=== PATIENT | female | born 1955 | race Caucasian/White ===

== ENCOUNTER 2020-07-23 15:04 | Inpatient (IN) | payer OTHER ==
[~2020-07-23] VITALS: Ht 152.4 cm; Wt 171.6 kg
[2020-07-23 16:17] LABS: Free Thyroxine 1.19 ng/dL (0.70-1.60); Thyroid Stimulating Hormone 1.7 uIU/mL (0.360-4.800)
[2020-07-24 08:30] LABS: BASOPHILS ABSOLUTE AUTO 0.01 K/mm3 (0.00-0.23); BASOPHILS PERCENT AUTO 0 % (0-2); EOSINOPHILS ABSOLUTE AUTO 0.07 K/mm3 (0.00-0.68); EOSINOPHILS PERCENT AUTO 1 % (0-6); Hematocrit 50.4 % (33.0-51.0); Hemoglobin 13.9 g/dL (11.5-16.0); IMMATURE GRAN ABSOLUTE AUTO 0.03 K/mm3 (0.00-0.10); IMMATURE GRAN PERCENT AUTO 1 % (0-1); LYMPHOCYTES ABSOLUTE AUTO 0.51 K/mm3 (0.84-5.20); LYMPHOCYTES PERCENT AUTO 10 % (21-46); MONOCYTES ABSOLUTE AUTO 0.44 K/mm3 (0.16-1.47); MONOCYTES PERCENT AUTO 8 % (4-13); Mean Corpuscular HGB 28.4 pg (26.0-34.0); Mean Corpuscular HGB Conc 27.6 g/dL (31.5-36.5); Mean Platelet Volume 9.8 fL (9.1-12.4); NEUTROPHILS ABSOLUTE AUTO 4.32 K/mm3 (1.96-9.15); NEUTROPHILS PERCENT AUTO 80 % (41-73); NRBC ABSOLUTE 0.04 K/mm3 (0.00-0.02); NRBC Auto 0.7 /100 WBC (0.0-0.2); Platelet Count 131 K/mm3 (150-400); RDW Coefficient Variation 14.3 % (11.7-14.2); RDW Standard Deviation 54.2 fL (35.1-46.3); White Blood Cell Count 5.38 K/mm3 (4.00-11.30)
[2020-07-24 08:31] LABS: Anion Gap -1 mmol/L (6-16); Blood Urea Nitrogen 26 mg/dL (8-24); Bun/Creatinine Ratio 30.8 (12.0-20.0); CHOL/HDL RATIO 3.4; CO2, Blood 40 mmol/L (21-32); Chloride, Blood 103 mmol/L (98-108); Cholesterol 85 mg/dL (50-200); Creatinine, Blood 0.85 mg/dL (0.40-1.00); Glomerular Filtration Rate >60 (60-); Glucose, Blood 125 mg/dL (70-99); HDL Cholesterol 25 mg/dL (>39); LDL/HDL RATIO 1.6; Low Density Lipoprotein Chol 41 mg/dL (0-110); Sodium, Blood 142 mmol/L (136-145); Triglycerides 95 mg/dL (30-160); Troponin I 0.109 ng/mL (0.000-0.040); Very Low Density Lipoprot Chol 19 mg/dL (6-32)
[2020-07-24 08:35] LABS: Mean Corpuscular Volume 103 fL (80-100)
[2020-07-25 05:59] LABS: Anion Gap 2 mmol/L (6-16); Blood Urea Nitrogen 22 mg/dL (8-24); CO2, Blood 40 mmol/L (21-32); Calcium, Blood 7.6 mg/dL (8.5-10.1); Chloride, Blood 99 mmol/L (98-108); Creatinine, Blood 0.73 mg/dL (0.40-1.00); Glomerular Filtration Rate >60 (60-); Glucose, Blood 103 mg/dL (70-99); Potassium, Blood 4.3 mmol/L (3.5-5.5); Sodium, Blood 141 mmol/L (136-145)
[2020-07-25 16:06] LABS: PCO2 Arterial 90 mmHg (35-45); PO2 Arterial 116 mmHg (80-100)
[2020-07-26 05:03] LABS: PCO2 Arterial 68.6 mmHg (35-45); PO2 Arterial 74.5 mmHg (80-100); pH Blood Arterial 7.43 (7.35-7.45)
[2020-07-26 05:19] LABS: Albumin, Blood 2.6 g/dL (3.4-5.0); Anion Gap 4 mmol/L (6-16); Blood Urea Nitrogen 17 mg/dL (8-24); CO2, Blood 42 mmol/L (21-32); Calcium, Blood 7.4 mg/dL (8.5-10.1); Chloride, Blood 94 mmol/L (98-108); Creatinine, Blood 0.63 mg/dL (0.40-1.00); Glomerular Filtration Rate >60 (60-); Glucose, Blood 87 mg/dL (70-99); Phosphorus, Blood 1.8 mg/dL (2.5-4.9); Potassium, Blood 3.6 mmol/L (3.5-5.5); Sodium, Blood 140 mmol/L (136-145)
[2020-07-27 04:22] LABS: Alanine Aminotransfer (ALT/SGP 38 U/L (12-78); Albumin, Blood 2.4 g/dL (3.4-5.0); Albumin/Globulin Ratio 0.7 (0.8-1.8); Alk Phos 91 U/L (50-136); Anion Gap 3 mmol/L (6-16); Aspartate Aminotrans (AST/SGOT 35 U/L (12-37); Bilirubin, Direct 0.3 mg/dL (0.0-0.3); Bilirubin, Indirect 0.7 mg/dL (0.1-0.7); Blood Urea Nitrogen 13 mg/dL (8-24); Bun/Creatinine Ratio 22.3 (12.0-20.0); CO2, Blood 43 mmol/L (21-32); Calcium, Blood 7.3 mg/dL (8.5-10.1); Chloride, Blood 92 mmol/L (98-108); Creatinine, Blood 0.58 mg/dL (0.40-1.00); Globulin, Blood 3.5 g/dL (2.2-4.0); Glomerular Filtration Rate >60 (60-); Glucose, Blood 96 mg/dL (70-99); Phosphorus, Blood 2.6 mg/dL (2.5-4.9); Potassium, Blood 3.3 mmol/L (3.5-5.5); Sodium, Blood 138 mmol/L (136-145); Total Protein, Blood 5.9 g/dL (6.4-8.2)
[2020-07-28 05:01] LABS: Albumin, Blood 2.7 g/dL (3.4-5.0); Anion Gap 3 mmol/L (6-16); Blood Urea Nitrogen 12 mg/dL (8-24); Bun/Creatinine Ratio 20.3 (12.0-20.0); CO2, Blood 43 mmol/L (21-32); Calcium, Blood 7.9 mg/dL (8.5-10.1); Chloride, Blood 94 mmol/L (98-108); Creatinine, Blood 0.59 mg/dL (0.40-1.00); Glomerular Filtration Rate >60 (60-); Glucose, Blood 97 mg/dL (70-99); Phosphorus, Blood 2.8 mg/dL (2.5-4.9); Potassium, Blood 3.8 mmol/L (3.5-5.5); Sodium, Blood 140 mmol/L (136-145)
[2020-07-28 05:38] LABS: PCO2 Arterial 72.5 mmHg (35-45); PO2 Arterial 62.8 mmHg (80-100)
[2020-07-29 05:39] LABS: PCO2 Arterial 82.5 mmHg (35-45); PO2 Arterial 75.5 mmHg (80-100); pH Blood Arterial 7.34 (7.35-7.45)
[2020-07-29 06:12] LABS: Albumin, Blood 2.5 g/dL (3.4-5.0); Anion Gap 2 mmol/L (6-16); Blood Urea Nitrogen 11 mg/dL (8-24); Bun/Creatinine Ratio 20.6 (12.0-20.0); CO2, Blood 41 mmol/L (21-32); Calcium, Blood 8.5 mg/dL (8.5-10.1); Chloride, Blood 97 mmol/L (98-108); Creatinine, Blood 0.53 mg/dL (0.40-1.00); Glomerular Filtration Rate >60 (60-); Glucose, Blood 97 mg/dL (70-99); Phosphorus, Blood 2.6 mg/dL (2.5-4.9); Potassium, Blood 3.7 mmol/L (3.5-5.5); Sodium, Blood 140 mmol/L (136-145)
[2020-07-30 05:39] LABS: PO2 Arterial 95.8 mmHg (80-100); pH Blood Arterial 7.36 (7.35-7.45)
[2020-07-30] MEDS ORDERED: ACET325 PO (11:31)
[2020-07-30] MEDS ORDERED: Aspir 8181 MG PO (11:31)
[2020-07-30] MEDS ORDERED: FURO40 PO (11:32)
[2020-07-30] MEDS ORDERED: ANTIFUNGAL POWD71 GM TOP (11:32)
[2020-07-30] MEDS ORDERED: POTCHL20ER PO (11:33)
[2020-07-30] MEDS ORDERED: NASAL SPRAY88 ML (11:35)
[2020-07-30] MEDS ORDERED: MIRALAX17 GM PO (11:36)
== END 2020-07-31 19:40 | disposition home or self-care (01) | DRG 280 ==
LOC: ER 15:04 → PCU 17:00 → MEDS 07-29 16:10 → ENPENDDIS 07-30 16:47 → MEDS 07-31 19:40
PROVIDERS: Internal Medicine; Nurse Practitioner Acute Care; Physician Assistant; ADMIT Internal Medicine
PROC: 5A09457 Assistance with Respiratory Ventilation, 24-96 Consecutive Hours, Continuous Positive Airway Pressure (ICD-10-PCS; principal; 2020-07-24)
PROC: 3E0234Z Introduction of Serum, Toxoid and Vaccine into Muscle, Percutaneous Approach (ICD-10-PCS; 2020-07-24)
DX: I11.0 Hypertensive heart disease with heart failure (principal); I50.31 Acute diastolic (congestive) heart failure; I21.A1 Myocardial infarction type 2; J96.21 Acute and chronic respiratory failure with hypoxia; J96.22 Acute and chronic respiratory failure with hypercapnia; Z23 Encounter for immunization; I27.20 Pulmonary hypertension, unspecified; E66.01 Morbid (severe) obesity due to excess calories; G47.33 Obstructive sleep apnea (adult) (pediatric); E83.39 Other disorders of phosphorus metabolism; E87.6 Hypokalemia; K59.00 Constipation, unspecified
CPT/HCPCS: 36415; 36600; 80048; 80053; 80061; 80069; 82248; 82803; 82947; 83735; 83880; 84100; 84439; 84443; 84484; 85025; 93005; 93010; 93306; 94660; 94761; 94762; 96372-59; 96374; 97110; 97116; 97162; 97166; 97530; 97535; 99285-25; A9270; J1644; J1940; J7060; Q2038

== ENCOUNTER → 2022-03-30 | Outpatient (CLI) | payer MEDICARE, OTHER ==
[~2022-03-30] MED LIST: ACET325 PO; ANTIFUNGAL POWD71 GM TOP; Aspir 8181 MG PO; FURO40 PO; MIRALAX17 GM PO; NASAL SPRAY88 ML; POTCHL20ER PO
[2022-04-02 14:06] LABS: Stool Occult Bld Immuno 1 Negative (NEGATIVE)
== END | disposition home or self-care (01) ==
LOC: LAB 14:29 → LAB SHORT 14:29
PROVIDERS: Physician Assistant
DX: Z12.11 Encounter for screening for malignant neoplasm of colon (principal)
CPT/HCPCS: G0328

== ENCOUNTER → 2022-05-11 | Outpatient (CLI) | payer MEDICARE, OTHER ==
[2022-05-13 15:10] LABS: HPV 16 Negative (Negative); HPV 18 Negative (Negative); HPV OTHER HR TYPES Negative (Negative)
== END | disposition home or self-care (01) ==
LOC: LAB 15:37 → LAB SHORT 15:37
PROVIDERS: Nurse Practitioner Family
DX: Z12.4 Encounter for screening for malignant neoplasm of cervix (principal); Z11.51 Encounter for screening for human papillomavirus (HPV)
CPT/HCPCS: 87624; G0123

== ENCOUNTER → 2023-04-03 | Outpatient (CLI) | payer MEDICARE, OTHER ==
[2023-04-06 10:43] LABS: Stool Occult Bld Immuno 1 Negative (NEGATIVE)
== END ==
LOC: LAB SHORT 12:00 → LAB 12:00
PROVIDERS: Physician Assistant
DX: Z12.11 Encounter for screening for malignant neoplasm of colon (principal)
CPT/HCPCS: G0328

== ENCOUNTER 2023-12-21 13:24 | Emergency (ER) | payer OTHER, MEDICARE ==
[~2023-12-21] VITALS: Ht 160 cm; Wt 154.2 kg
[2023-12-21 13:30] VITALS: BP 127/75
[2023-12-21] MEDS ORDERED: ALEN70 PO (13:41)
[2023-12-21] MEDS ORDERED: LOSA25 PO (13:41)
[2023-12-21] MEDS ORDERED: FOLI1 (13:41)
[2023-12-21] MEDS ORDERED: THERA-D2000 UNIT PO (13:41)
[2023-12-21] MEDS ORDERED: CALCIUM PO (13:41)
[2023-12-21] MEDS ORDERED: Triamcinolone A15 G3 (13:42)
[2023-12-21] MEDS ORDERED: TURMERIC538 MG (13:42)
[2023-12-21] MEDS ORDERED: METTREX2.5 (13:42)
[2023-12-21] MEDS ORDERED: MERIBIN5 MG (13:42)
[2023-12-21] MEDS ORDERED: MULVITA (13:42)
== END 2023-12-21 14:55 | disposition home or self-care (01) ==
LOC: ER 13:24
DX: S86.912A Strain of unspecified muscle(s) and tendon(s) at lower leg level, left leg, initial encounter (principal); E66.01 Morbid (severe) obesity due to excess calories; W01.0XXA Fall on same level from slipping, tripping and stumbling without subsequent striking against object, initial encounter; Z79.82 Long term (current) use of aspirin; Z79.899 Other long term (current) drug therapy; Z88.0 Allergy status to penicillin; Z88.8 Allergy status to other drugs, medicaments and biological substances
CPT/HCPCS: 73562-LT; 99283-25

== ENCOUNTER 2025-04-10 10:00 | Inpatient (IN) | payer MEDICARE, OTHER ==
[~2025-04-10] VITALS: Ht 157.5 cm; Wt 162.0 kg
[~2025-04-10 10:00] MED LIST changes: +ALEN70 PO; +ALKUMS300 MG PO; +FOLI1 PO; +LOSA25 PO; +MERIBIN5 MG PO; +METTREX2.5; +MULVITA PO; +THERA-D2000 UNIT PO; +TURMERIC538 MG PO; +Triamcinolone A15 G3
[2025-04-10 10:46] LABS: BASOPHILS ABSOLUTE AUTO 0.03 K/mm3 (0.00-0.23); BASOPHILS PERCENT AUTO 0 % (0-2); EOSINOPHILS ABSOLUTE AUTO 0.10 K/mm3 (0.00-0.68); EOSINOPHILS PERCENT AUTO 1 % (0-6); Hematocrit 31.7 % (33.0-51.0); Hemoglobin 8.2 g/dL (11.5-16.0); IMMATURE GRAN ABSOLUTE AUTO 0.08 K/mm3 (0.00-0.10); IMMATURE GRAN PERCENT AUTO 1 % (0-1); LYMPHOCYTES ABSOLUTE AUTO 0.74 K/mm3 (0.84-5.20); LYMPHOCYTES PERCENT AUTO 8 % (21-46); MONOCYTES ABSOLUTE AUTO 0.59 K/mm3 (0.16-1.47); MONOCYTES PERCENT AUTO 6 % (4-13); Mean Corpuscular HGB Conc 25.9 g/dL (31.5-36.5); Mean Corpuscular Volume 86 fL (80-100); NEUTROPHILS ABSOLUTE AUTO 7.94 K/mm3 (1.96-9.15); NEUTROPHILS PERCENT AUTO 84 % (41-73); NRBC ABSOLUTE 0.09 K/mm3 (0.00-0.02); NRBC Auto 0.9 /100 WBC (0.0-0.2); Platelet Count 223 K/mm3 (150-400); RDW Coefficient Variation 18.5 % (11.7-14.2); RDW Standard Deviation 55.6 fL (35.1-46.3)
[2025-04-10 11:09] LABS: CORONAVIRUS COVID-19 AG Negative (NEGATIVE)
[2025-04-10 11:26] LABS: Alanine Aminotransfer (ALT/SGP 32.0 U/L (12-78); Albumin, Blood 2.9 g/dL (3.4-5.0); Albumin/Globulin Ratio 0.7 (0.8-1.8); Anion Gap 4.0 mmol/L (3-11); Aspartate Aminotrans (AST/SGOT 24.0 U/L (12-37); Bilirubin, Total 0.4 mg/dL (0.1-1.0); Blood Urea Nitrogen 17.0 mg/dL (8-24); CO2, Blood 40.0 mmol/L (21-32); Calcium, Blood 9.3 mg/dL (8.5-10.1); Chloride, Blood 95.0 mmol/L (98-108); Creatinine, Blood 0.66 mg/dL (0.40-1.00); Globulin, Blood 3.9 g/dL (2.2-4.0); Glucose, Blood 175.0 mg/dL (70-99); Potassium, Blood 5.1 mmol/L (3.5-5.5); Sodium, Blood 134.0 mmol/L (136-145); Total Protein, Blood 6.8 g/dL (6.4-8.2)
[2025-04-10 12:13] LABS: Source, Urine Straight Cath
[2025-04-10 12:19] LABS: Bilirubin, Urine Neg (Neg); Color, Urine Yellow (P-Yellow); Glucose Qualitative, Urine Neg (Neg); Ketones, Urine Neg (Neg); Leukocyte Esterase, Urine Neg (Neg); Protein, Urine 2+ (Neg); Specific Gravity, Urine 1.025 (1.003-1.022); Urobilinogen, Urine NORM (Normal)
[2025-04-10 12:28] LABS: Red Blood Cells, Urine 0-2 /hpf (0-2)
[2025-04-10] MEDS ORDERED: CefTRIAXone Sodium 1,000 MG in NS 50 ML IV ONE (13:35)
[2025-04-10] MEDS ORDERED: FLU VACC TS2025(65UP)/MF59C/PF 45 MCG/0.5 ML SYRINGE IM SCH (14:00)
[2025-04-10] MEDS ORDERED: Furosemide 10 MG / ML 2ML Vial IV SCH (14:09)
[2025-04-10] MEDS ORDERED: Ipratropium/Albuterol SulF 2.5-0.5MG/3 ML Amp INH PRN (14:25)
[2025-04-10 16:56] LABS: pH Blood Venous 7.25 (7.34-7.37)
[2025-04-10 17:46] VITALS: BP 153/86
[2025-04-10 18:05] LABS: Influenza A/2009-H1 Not Detected (NOT DETECT); SARS-Cov-2 (COVID-19), BioFire Not Detected (NOT DETECT)
--- NOTE | 2025-04-10 18:47 | NUR ---
ADMIT NOTE RECEIVED REPORT FROM KAREEN RICO IN ED. RECEIVED CALL FROM POP RT THAT PATIENT WAS NO LONGER RESPONDING. PATIENT TO ROOM VIA GURNEY, TRANSFERED TO BED. PT OBTUNDED, RESPONDING TO PAINFUL STIMULI BUT QUICKLY FALLING BACK TO SLEEP. PT ON BIPAP AVAPS 18-26 50%, RESP RATE 25-30'S, SHALLOWING BREATHING NOTED, RT AT BEDSIDE, VBG RESULTED TO DR MCCAULEY PER RT. TELE SINUS 70'S, BP STABLE. PT SATURATED WITH URINE, BEDBATH PROVIDED, PUREWICK PLACED. NPA PLACED BY RT DUE TO TIDAL VOLUMES. PT MORE ALERT AT THIS TIME, PULLING AT LINES, PULLED IV, PUREWICK, SEVERAL TIMES AND PULLING OFF BIPAP; PT ATTEMPTING TO REMOVED NPA, REMOVED FOR PATIENT COMFORT. TO NOTIFIED THAT UNABLE TO DO STRICT I/O DR MCCAULEY, NEW ORDERS FOR BARRETO CATHETER. PATIENT SETTLEDED, ALERT, ORIENTED, ANSWERING QUESTIONS APPROPRAITELY. BED IN LOW, CALL LIGHT WITHIN REACH. REPORT GIVEN TO ONCOMING RN.
[2025-04-10 19:01] LABS: pH Blood Venous 7.28 (7.34-7.37)
[2025-04-10 19:26] VITALS: BP 136/69
[2025-04-10 23:30] VITALS: BP 122/64
[2025-04-11] VITALS (7 sets, daily range): BP systolic 118–160; BP diastolic 65–101
[2025-04-11 04:47] LABS: Anion Gap 3.0 mmol/L (3-11); Blood Urea Nitrogen 18.0 mg/dL (8-24); CO2, Blood 43.0 mmol/L (21-32); Calcium, Blood 8.4 mg/dL (8.5-10.1); Chloride, Blood 95.0 mmol/L (98-108); Creatinine, Blood 0.55 mg/dL (0.40-1.00); Glucose, Blood 131.0 mg/dL (70-99); Potassium, Blood 4.9 mmol/L (3.5-5.5); Sodium, Blood 136.0 mmol/L (136-145)
--- NOTE | 2025-04-11 06:36 | NUR ---
NO ACUTE EVENTS OVERNIGHT PT IS ALERT AND ORIENTED X 3. PT IS UNAWARE OF THE DAY/DATE. PT IS PLEASANT AND TALKATIVE. PT IS ABLE TO FOLLOWS COMMANDS. PT HAS WEAKNESS IN ALL EXTREMITIES. PT TOLERATES BIPAP WELL. BARRETO PATENT AND DRAINING. BARIACTRIC BED LOCKED IN LOWEST POSITION. LIFT USED TO REPOSITION PT. PT HAS NO FAMILY PER FRIEND/NEIGHBOR AT BEDSIDE. PT'S EMERGENCY CONTACTS ARE FRIENDS. NAMES AND NUMBERS PLACED IN CHART AND WRITTEN ON BOARD. CALL LIGHT WITHIN REACH.
[2025-04-11 08:59] LABS: pH Blood Venous 7.38 (7.34-7.37)
[2025-04-11] MEDS ORDERED: Enoxaparin 40 MG/0.4 ML SYR SC SCH (09:00)
[2025-04-11] MEDS ORDERED: CefTRIAXone Sodium 1,000 MG in NS 100 ML IV SCH (15:00)
[2025-04-11] MEDS ORDERED: OTEZLA PO (16:13)
[2025-04-11] MEDS ORDERED: NYSTOP15 GM TOP (16:15)
[2025-04-11] MEDS ORDERED: ALEN70 PO (16:15)
[2025-04-11] MEDS ORDERED: FURO40 PO (16:17)
--- NOTE | 2025-04-11 19:20 | NUR ---
SHIFT SUMMARY: A/O X4, PLEASANT AND COOPERATIVE WITH CARE, ABLE TO COMMUNICATE NEEDS, ODD PERSONALITY, GETS SIDE TRACKED EASILY. 4.5-5L O2 VIA NC WHILE AWAKE, BIPAP WITH SLEEP, NEIGHBOR BROUGHT IN HOME BIPAP AND PORTABLE O2, NOTIFY RT TO SET UP WHEN PT IS READY FOR BED, DENIES SOB, CHEST PAIN OR PRESSURE. NSR, HR 70'S. MD GUY TO BEDSIDE TODAY, CT W/CONTRAST OF CHEST COMPLETED, SPUTUM SAMPLE COLLECTED, LIVER ULTRASOUND ORDERED.
[2025-04-12 04:05] VITALS: BP 131/65
[2025-04-12 04:27] LABS: BASOPHILS ABSOLUTE AUTO 0.00 K/mm3 (0.00-0.23); BASOPHILS PERCENT AUTO 0 % (0-2); EOSINOPHILS ABSOLUTE AUTO 0.01 K/mm3 (0.00-0.68); EOSINOPHILS PERCENT AUTO 0 % (0-6); Hematocrit 28.0 % (33.0-51.0); Hemoglobin 7.3 g/dL (11.5-16.0); IMMATURE GRAN ABSOLUTE AUTO 0.03 K/mm3 (0.00-0.10); IMMATURE GRAN PERCENT AUTO 1 % (0-1); LYMPHOCYTES ABSOLUTE AUTO 0.35 K/mm3 (0.84-5.20); LYMPHOCYTES PERCENT AUTO 6 % (21-46); MONOCYTES ABSOLUTE AUTO 0.23 K/mm3 (0.16-1.47); MONOCYTES PERCENT AUTO 4 % (4-13); Mean Corpuscular HGB Conc 26.1 g/dL (31.5-36.5); Mean Corpuscular Volume 85 fL (80-100); NEUTROPHILS ABSOLUTE AUTO 5.02 K/mm3 (1.96-9.15); NEUTROPHILS PERCENT AUTO 89 % (41-73); NRBC ABSOLUTE 0.00 K/mm3 (0.00-0.02); NRBC Auto 0.0 /100 WBC (0.0-0.2); Platelet Count 174 K/mm3 (150-400); RDW Coefficient Variation 19.1 % (11.7-14.2); RDW Standard Deviation 54.5 fL (35.1-46.3)
[2025-04-12 04:57] LABS: Albumin, Blood 2.6 g/dL (3.4-5.0); Blood Urea Nitrogen 19 mg/dL (8-24); Calcium, Blood 8.3 mg/dL (8.5-10.1); Chloride, Blood 94 mmol/L (98-108); Creatinine, Blood 0.59 mg/dL (0.40-1.00); Glucose, Blood 131 mg/dL (70-99); Phosphorus, Blood 2.9 mg/dL (2.5-4.9); Potassium, Blood 4.2 mmol/L (3.5-5.5); Sodium, Blood 137 mmol/L (136-145)
[2025-04-12 04:59] LABS: Anion Gap Unable to Calculate mmol/L (3-11); CO2, Blood >45 mmol/L (21-32)
--- NOTE | 2025-04-12 06:33 | NUR ---
SHIFT SUMMARY PATIENT A/OX4. ON O2 @ 4-5L/MIN NC BEGINNING OF SHIFT. TRIED HER HOME VENT AND IT WAS NOT ADEQUATE, SHE WOULD DESATURATE RAPIDLY TO 70'S. RT SWITCHED HER OVER TO HOSPITAL PAP. PATIENT PERRI WELL WITH FREQUENT BREAKS TO DRINK WATER. SR ON MONITOR. NO COMPLAINTS OF PAINT. READJUSTED PRN FOR COMFORT AND PRESSURE RELIEF. DISCUSSED AM LAB VALUES H&H TREND AND CRITICAL CO2 >45 WITH RESIDENT. GOOD URINE OUTPUT. NO SIGNIFICANT EVENTS OVERNIGHT. PATIENT ABLE TO MAKE NEEDS KNOWN WITH CALL LIGHT IN REACH. PLAN OF CARE ONGOING.
[2025-04-12] MEDS ORDERED: Iron Dextran 50 MG / ML 2ML Vial IV ONE (08:00)
[2025-04-12 08:18] VITALS: BP 138/68
[2025-04-12 09:01] LABS: pH Blood Venous 7.33 (7.34-7.37)
[2025-04-12] MEDS ORDERED: Iron Dextran 975 MG in NS 250 ML IV ONE (10:00)
[2025-04-12] MEDS ORDERED: Polyethylene Glycol 3350 17 gm PO PRN (11:10)
[2025-04-12 11:57] VITALS: BP 122/59
[2025-04-12 15:26] VITALS: BP 134/66
--- NOTE | 2025-04-12 15:39 | NUR ---
SHIFT SUMMARY: A/O X4, PLEASANT AND COOPERATIVE WITH CARE, ABLE TO COMMUNICATE NEEDS, USES CALL LIGHT APPROPRIATLEY. HOME AVAPS AT BEDSIDE WITH REPORT OF HOME SETTINGS NOT BEING ADEQUATE FOR PT AT THIS TIME PER RT AND MD GUY, CONTINUE USING HOSPITAL AVAPS, HOME PORTABLE O2 IN CLOSET. SPO2 >92% ON 3-4L OF 02 VIA NC, DESATS WITH MOUTH BREATHING, RECOVERS WITH REMINDERS TO BREATHE THROUGH THE NOSE, DENIES SOB. PT UP TO CHAIR MOST OF THE DAY, 1 EPISODE OF DESAT TO 70'S WHEN PT STOOD TO ADJUST HERSELF IN CHAIR, QUICKLY RECOVERED. ESTEVAN DUMONT'D, PUREWICK IN PLACE DRAING TO LIGHT SUCTION. VENOUS DUPLEX AND LIVER ULTRASOUND COMPLETED.
--- NOTE | 2025-04-12 19:41 | NUR ---
[facility] ASSUMED PT'S CARE AT 1900,PT LYING IN BED USING TABLET.BEDSIDE REPORT COMPLETED.PLAN OF CARE REVIEWED.WEARING HOSPITAL BIPAP WITH ADJUSTED AVAP SETTINGS DIFFERENT FROM HOME TRILOGY SETTINGS.PT DENIES PAIN,DENIES SOB,DENIES NUMBNESS/TINGLING,DENIES NAUSEA,DENIES NEEDS.CALL LIGHT AND PT'S ITEMS WITHIN REACH.MONITORING ONGOING PER CAREPLAN.
[2025-04-12 20:05] VITALS: BP 132/62
[2025-04-12] MEDS ORDERED: Lactobacil 2-S.Thermo-Bifido 1 1 Cap PO SCH (21:00)
[2025-04-12 23:34] VITALS: BP 111/60
[2025-04-13 03:44] VITALS: BP 122/67
[2025-04-13 04:11] LABS: Hematocrit 27.9 % (33.0-51.0); Hemoglobin 7.3 g/dL (11.5-16.0); Mean Corpuscular HGB Conc 26.2 g/dL (31.5-36.5); Mean Corpuscular Volume 84 fL (80-100); NRBC ABSOLUTE 0.03 K/mm3 (0.00-0.02); NRBC Auto 0.5 /100 WBC (0.0-0.2); Platelet Count 183 K/mm3 (150-400); RDW Coefficient Variation 19.5 % (11.7-14.2); RDW Standard Deviation 54.3 fL (35.1-46.3)
[2025-04-13 04:32] LABS: Albumin, Blood 2.6 g/dL (3.4-5.0); Anion Gap 4 mmol/L (3-11); Blood Urea Nitrogen 21 mg/dL (8-24); CO2, Blood 44 mmol/L (21-32); Calcium, Blood 8.5 mg/dL (8.5-10.1); Chloride, Blood 94 mmol/L (98-108); Creatinine, Blood 0.64 mg/dL (0.40-1.00); Glucose, Blood 97 mg/dL (70-99); Phosphorus, Blood 3.0 mg/dL (2.5-4.9); Potassium, Blood 3.6 mmol/L (3.5-5.5); Sodium, Blood 138 mmol/L (136-145)
--- NOTE | 2025-04-13 06:22 | NUR ---
PT MONITORED DURING THE SHIFT.PT USED THE BIPAP ON/OFF.PT SAID THAT SHE NEEDED A BREAK DUE TO MOUTH DRYNESS.PT STATES THAT SHE IS USED TO USING THE TRILOGY SINCE IT HAS MOISTURE.USED 4L NC WHILE TOOK A BREAK FROM THE BIPAP.PT DENIES PAIN,DENIES SOB,DENIES NEEDS AT THIS TIME.CALL LIGHT AND PT'S ITEMS WITHIN REACH.MONITORING ONGOING PER CAREPLAN.
[2025-04-13 08:12] VITALS: BP 136/62
--- NOTE | 2025-04-13 13:33 | NUR ---
Telephone report given to KAREEN Sevilla at this time. Pt to move up to 325 shortly. netbackup administrator working transfer her up.
[2025-04-13 13:59] VITALS: BP 128/63
[2025-04-13] MEDS ORDERED: NS 250 ML IV PRN (15:35)
--- NOTE | 2025-04-13 19:32 | NUR ---
PT A/OX4. PLEASANT AND COOPERATIVE WITH CARE. USES CALL LIGHT APPROPRIATELY. PT IS ON IV LASIX WITH PUREWICK IN PLACE. REPORTS NO BM SINCE ADMISSION. PT ON 4L O2 NC, SATTING AT 93% ON CONT PULSE OX.1-2PA TO THE COMMODE. DENIES PAIN. NO ACUTE NEEDS AT THIS TIME.
[2025-04-13 19:58] VITALS: BP 123/51
[2025-04-13] MEDS ORDERED: Docusate Sodium/Senna 1 Tab PO SCH (21:00)
[2025-04-14 02:56] VITALS: BP 106/64
[2025-04-14 04:49] LABS: Albumin, Blood 2.7 g/dL (3.4-5.0); Anion Gap 7 mmol/L (3-11); Blood Urea Nitrogen 19 mg/dL (8-24); CO2, Blood 42 mmol/L (21-32); Calcium, Blood 8.9 mg/dL (8.5-10.1); Chloride, Blood 94 mmol/L (98-108); Creatinine, Blood 0.60 mg/dL (0.40-1.00); Glucose, Blood 90 mg/dL (70-99); Phosphorus, Blood 3.8 mg/dL (2.5-4.9); Potassium, Blood 3.9 mmol/L (3.5-5.5); Sodium, Blood 139 mmol/L (136-145)
--- NOTE | 2025-04-14 04:56 | NUR ---
SHIFT SUMMARY PATIENT ADMITTED FOR ACUTE AND CHRONIC RESPIRATORY FAILURE WITH HYPOXIA. PATIENT ON BIPAP AT NIGHT FOR OBSTRUCTIVE SLEEP APNEA. PATIENT USES CALL LIGHT FREQUENTLY FOR POSITION CHANGES, INCLUDING RAISING THE HEAD AND FOOT OF THE BED. PATIENT RESTING COMFORTABLE AT THIS TIME. BED RAILS UP X3. BED IN LOWEST POSITION FOR SAFETY. CALL LIGHT WITHIN REACH.
[2025-04-14 07:43] VITALS: BP 128/64
[2025-04-14] MEDS ORDERED: TRIA15CR3 TOP (09:04)
[2025-04-14 15:41] VITALS: BP 142/72
[2025-04-14] MEDS ORDERED: ZINC OXIDE/PETROLATUM, YELLOW 1 APPLIC/71 GM PASTE TOP PRN (16:55)
[2025-04-14 19:51] VITALS: BP 121/50
[2025-04-15 03:40] VITALS: BP 130/61
[2025-04-15 08:00] VITALS: BP 105/59
[2025-04-15 15:17] VITALS: BP 114/64
[2025-04-15 19:58] VITALS: BP 105/61
[2025-04-15] MEDS ORDERED: Enoxaparin 40 MG/0.4 ML SYR SC SCH (21:00)
[2025-04-16 05:22] VITALS: BP 116/69
[2025-04-16 07:04] LABS: Hematocrit 29.7 % (33.0-51.0); Hemoglobin 7.9 g/dL (11.5-16.0); Mean Corpuscular HGB Conc 26.6 g/dL (31.5-36.5); Mean Corpuscular Volume 85 fL (80-100); NRBC ABSOLUTE 0.00 K/mm3 (0.00-0.02); NRBC Auto 0.0 /100 WBC (0.0-0.2); Platelet Count 146 K/mm3 (150-400); RDW Coefficient Variation 21.2 % (11.7-14.2); RDW Standard Deviation 58.4 fL (35.1-46.3)
[2025-04-16 07:26] LABS: Magnesium, Blood 2.5 mg/dL (1.6-2.4)
[2025-04-16 07:33] LABS: Albumin, Blood 2.6 g/dL (3.4-5.0); Anion Gap Unable to Calculate mmol/L (3-11); Blood Urea Nitrogen 18 mg/dL (8-24); Calcium, Blood 9.0 mg/dL (8.5-10.1); Chloride, Blood 92 mmol/L (98-108); Creatinine, Blood 0.67 mg/dL (0.40-1.00); Glucose, Blood 102 mg/dL (70-99); Phosphorus, Blood 3.6 mg/dL (2.5-4.9); Potassium, Blood 4.0 mmol/L (3.5-5.5); Sodium, Blood 138 mmol/L (136-145)
[2025-04-16 07:35] LABS: CO2, Blood >45 mmol/L (21-32)
[2025-04-16 07:46] VITALS: BP 120/58
[2025-04-16 16:20] VITALS: BP 122/65
--- NOTE | 2025-04-16 18:23 | NUR ---
NOTE PT UP IN CHAIR ALL DAY. VSS. AWAITING NEW TRILOGY BIPAP FROM [facility]. PT ACCIDENTLY REMOVED POWER GLIDE WHILE REACHING ON HER BED. NO IV ORDER RECEIVED FROM DR BOB. 3L N/C. CONTINUOS BIOX SAT 90-94%. SLIPPY SOCKS ON. BED LOW AND LOCKED. CALL LIGHT WITH IN REACH.
[2025-04-16 20:31] VITALS: BP 112/60
[2025-04-17 03:33] VITALS: BP 118/59
--- NOTE | 2025-04-17 05:19 | NUR ---
PT AMBULATED INDEPENDENTLY FROM CHAIR TO BED AND WAS ABLE TO BE COACHED THRU BOOSTING HERSELF UP IN THE BED. USED BIPAP WHEN SLEEPING. NO ACUTE EVENTS WERE NOTED, VITALS STABLE. PERSONAL BELONGINGS AND CALL SARMIENTO WITHIN REACH, BED IN LOWEST POSITION.
[2025-04-17 07:15] VITALS: BP 131/60
[2025-04-17] MEDS ORDERED: JARDIANCE10 MG PO (11:57)
[2025-04-17 14:56] VITALS: BP 110/62
--- NOTE | 2025-04-17 17:20 | NUR ---
DISCHARGE NOTE: A&OX4 PRIOR TO D/C. FAMILY ASSISTED PT WITH GATHERING BELONGINGS AND GETTING DRESSED. HOME O2 TANK SENT WITH PT. PT WHEELED OUT WITH STAFF ESCORT. LINES REMOVED PRIOR TO LEAVING.
== END 2025-04-17 17:15 | disposition home health service (06) | DRG 871 ==
LOC: ER 10:00 → PCU 13:44 → MEDS 04-13 14:18 → ENPENDDIS 04-17 10:47 → MEDS 04-17 17:15
PROVIDERS: Emergency Medicine; Internal Medicine; Internal Medicine Critical Care Medicine; Student in an Organized Health Care Education/Training Program; ADMIT Internal Medicine
PROC: 3E02340 Introduction of Influenza Vaccine into Muscle, Percutaneous Approach (ICD-10-PCS; 2025-04-10)
PROC: 5A09357 Assistance with Respiratory Ventilation, Less than 24 Consecutive Hours, Continuous Positive Airway Pressure (ICD-10-PCS; principal; 2025-04-11)
PROC: 3E03329 Introduction of Other Anti-infective into Peripheral Vein, Percutaneous Approach (ICD-10-PCS; 2025-04-11)
DX: A41.9 Sepsis, unspecified organism (principal); G92.8 Other toxic encephalopathy; J18.9 Pneumonia, unspecified organism; J96.21 Acute and chronic respiratory failure with hypoxia; I50.33 Acute on chronic diastolic (congestive) heart failure; Z68.44 Body mass index [BMI] 60.0-69.9, adult; E66.2 Morbid (severe) obesity with alveolar hypoventilation; R65.20 Severe sepsis without septic shock; I11.0 Hypertensive heart disease with heart failure; Z60.2 Problems related to living alone; F12.90 Cannabis use, unspecified, uncomplicated; D50.9 Iron deficiency anemia, unspecified; L40.9 Psoriasis, unspecified; I27.21 Secondary pulmonary arterial hypertension; Z88.8 Allergy status to other drugs, medicaments and biological substances; Z99.81 Dependence on supplemental oxygen; Z88.0 Allergy status to penicillin; Z91.048 Other nonmedicinal substance allergy status; Z79.899 Other long term (current) drug therapy; Z79.82 Long term (current) use of aspirin; Z90.721 Acquired absence of ovaries, unilateral; Z87.891 Personal history of nicotine dependence; Z90.89 Acquired absence of other organs; Z23 Encounter for immunization
CPT/HCPCS: 0202U; 36415; 51703; 71046; 71260; 76700; 80048; 80053; 80069; 81001; 82803; 82947; 83735; 83880; 84145; 85025; 85027; 87040; 87070; 87086; 87205; 87428-QW; 93005; 93010; 93306; 93970; 94640; 94660; 94664; 94761; 94762; 97110; 97110-CQ; 97116-CQ; 97161; 97530; 99285-25; A6590; A9270; C1751; J0456; J0696; J1650; J1750; J1938; J2919; J7050; Q9967